=== PATIENT | female | born 1950 | race Caucasian/White ===

== ENCOUNTER 2023-09-28 13:37 | Outpatient (CLI) | payer MEDICARE, SELFPAY ==
--- NOTE | 2023-09-28 13:42 | MM_ITS ---
PROCEDURE INFORMATION: Exam: Bilateral Screening 3D Mammography Exam date and time: 09/28/2023 2:05 PM Age: 73 years old Clinical indication: Screening examination TECHNIQUE: Imaging protocol: Bilateral Screening tomosynthesis and 2D mammography including computer-aided detection (CAD) when performed. COMPARISON: 1. MG DMSB DIGITAL MAMM-SCREEN BILATERAL 01/24/2010 9:55 AM 2. MG Prior Reports 01/23/2009 10:11 AM FINDINGS: MAMMOGRAPHY: Breast composition: There are scattered areas of fibroglandular density. Mass: None. Architectural distortion: None. Calcifications: No suspicious calcifications. Asymmetric density: None. Skin thickening: None. Axillary adenopathy: None. IMPRESSION: No mammographic evidence of malignancy. Annual screening is recommended unless otherwise clinically indicated. ASSESSMENT: BI-RADS Category 1: Negative
== END 2023-09-28 23:59 | disposition home or self-care (01) ==
LOC: RAD 13:37
PROVIDERS: PCP Nurse Practitioner Family; Visit Provider Nurse Practitioner Family
DX: Z12.31 Encounter for screening mammogram for malignant neoplasm of breast (principal)
CPT/HCPCS: 77063; 77067

== ENCOUNTER 2024-04-06 08:46 | Outpatient (CLI) | payer MEDICARE, SELFPAY ==
--- NOTE | 2024-04-06 08:51 | CT_ITS ---
FINAL REPORT TECHNIQUE: Axial CT without IV contrast administration using low dose protocol. Coronal and sagittal reconstructed images were obtained and reviewed. This study was performed with techniques to keep radiation doses as low as reasonably achievable, (ALARA). Individualized dose reduction techniques using automated exposure control or adjustment of mA and/or kV according to the patient''s size were employed. CLINICAL HISTORY: SCREENING FORMER SMOKER, QUIT 12 YRS AGO, SMOKED 2 1/2 PKS PER DAY X 45 YRS COMPARISON: None FINDINGS: CT CHEST LOW DOSE SCREENING DOSE: CTDIvol: 2.9 mGy, DLP: 114.9 mGy*cm No acute lung disease is present . No pulmonary lesions are seen suspicious for neoplasm. No pleural or pericardial effusion is seen . No adenopathy or mass lesion is present . There is evidence of old calcified granulomatous disease. IMPRESSION: No evidence of lung cancer LUNG RADS CATEGORY 1 RECOMMENDATION: 12 month LDCT follow up per Fleischner criteria Reviewed, Interpreted and Dictated by Rozina Lara MD Transcribed by Fabiana Arreguin Authenticated and [facility]
--- NOTE | 2024-04-06 08:51 | XR_ITS ---
FINAL REPORT TECHNIQUE: Bone densitometry calculations of the lumbar spine and left hip were obtained. CLINICAL HISTORY: SCREENING COMPARISON: None FINDINGS: Using L1-4, the bone mineral density of the spine is 1.046 g/cm2, corresponding to T-score of 0.0. Using the left hip, the bone mineral density of the femoral neck is 0.635 g/cm2, corresponding to a T-score of -2.5. Using the right hip, the bone mineral density of the femoral neck is 0.732 g/cm?, corresponding to a T-score of -1.1. NOTE: T-score: Standard deviation compared with peak bone mass of young adult mean. *Following the recommendations of the International Society of Bone densitometry, classification of hip BMD is based on the lower of two T-scores; total hip or femoral neck. IMPRESSION: Diminished bone mineral density of the right hip consistent with osteopenia. Diminished bone mineral density of the left hip consistent with osteoporosis. Normal bone mineral density of the lumbar spine. Reviewed, Interpreted and Dictated by Rozina Lara MD Transcribed by Purnima Irene Authenticated and [facility]
== END 2024-04-06 23:59 | disposition home or self-care (01) ==
LOC: RAD 08:47
PROVIDERS: PCP Nurse Practitioner Family; Visit Provider Nurse Practitioner Family
DX: M85.88 Other specified disorders of bone density and structure, other site (principal); Z87.891 Personal history of nicotine dependence; Z12.2 Encounter for screening for malignant neoplasm of respiratory organs
CPT/HCPCS: 71271; 77080